=== PATIENT | male | born 1995 | race Caucasian/White ===

== ENCOUNTER 2023-12-13 09:55 | Emergency (ER) | payer BC, OTHER ==
[2023-12-13 10:22] VITALS: BP 137/83; PULSE 89; RESP 18; TEMP 98.6; BMI 30.6
[2023-12-13 10:55] LABS: EPITHELIAL CELLS 0-5 /hpf
[2023-12-13 10:57] LABS: HEMATOCRIT 45.8 % (35.4-49); HEMOGLOBIN 14.9 G/dL (11.7-16.9); MCH 28.9 pg (25.7-33.7); MCHC 32.6 g/dl (32.0-35.9); MEAN CELL VOLUME 88.8 fl (80-96); PLATELET COUNT 289.4 10^3/uL (134-434); RBC 5.16 10^6/uL (4.00-5.60); RDW 14.4 % (11.9-15.9); WHITE BLOOD COUNT 8.7 10^3/uL (4.0-10.8)
[2023-12-13 11:19] LABS: PLATELET ESTIMATE ADEQUATE
[2023-12-13 11:31] LABS: ALBUMIN 4.3 g/dl (3.4-5.0); ALK PHOS 61 U/L (45-117); ANION GAP 9 mmol/L (4-13); BILIRUBIN,TOTAL 0.5 mg/dl (0.2-1); CALCIUM 9.5 mg/dl (8.5-10.1); CHLORIDE 102 mmol/L (98-107); CO2 25 mmol/L (21-32); CREATININE 0.7 mg/dl (0.6-1.3); GLUCOSE,RANDOM 92 mg/dl (74-106); SGOT/AST 13 U/L (15-37); SGPT/ALT 21 U/L (7-52); SODIUM 136 mmol/L (136-145); TOT PROT 7.1 g/dl (6.4-8.2)
[2023-12-13] MEDS ORDERED: ACETAMINOPHEN 325 MG TABLET (FP) ONE (12:53)
== END 2023-12-13 14:59 | disposition home or self-care (01) ==
LOC: FER 09:55
DX: R31.9 Hematuria, unspecified (principal); N13.2 Hydronephrosis with renal and ureteral calculous obstruction
CPT/HCPCS: 36415; 74176-TC; 80053; 81003; 81015; 82550; 85025; 87086; 99284-25